=== PATIENT | female | born 1995 | race African-American/Black ===

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

== ENCOUNTER 2017-01-26 15:00 | Emergency (ER) | payer OTHER ==
[~2017-01-26] VITALS: Wt 56.7 kg
[2017-01-26] MEDS ORDERED: HYDROXYZINE HCL25 MG PO (15:05)
[2017-01-26] MEDS ORDERED: NAPROSYN500 MG PO (15:16)
[2017-01-26] MEDS ORDERED: PREDNISONE10 MG PO (15:22)
== END 2017-01-26 16:15 | disposition home or self-care (01) ==
LOC: ED 15:00
DX: M79.671 Pain in right foot (principal); R03.0 Elevated blood-pressure reading, without diagnosis of hypertension; F17.210 Nicotine dependence, cigarettes, uncomplicated

== ENCOUNTER 2017-03-31 15:30 | Emergency (ER) | payer OTHER ==
[~2017-03-31] VITALS: Ht 152.4 cm; Wt 61.2 kg
[~2017-03-31 15:30] MED LIST changes: +HYDROXYZINE HCL25 MG PO; +NAPROSYN500 MG PO; +PREDNISONE10 MG PO
[2017-03-31] MEDS ORDERED: CEPHALEXIN500 M1 PO (16:03)
[2017-03-31] MEDS ORDERED: NAPROSYN500 MG PO (16:03)
== END 2017-03-31 16:07 | disposition home or self-care (01) ==
LOC: ED 15:30
DX: L02.31 Cutaneous abscess of buttock (principal); F17.210 Nicotine dependence, cigarettes, uncomplicated; Z79.899 Other long term (current) drug therapy

== ENCOUNTER 2017-06-17 12:40 | Emergency (ER) | payer OTHER ==
[~2017-06-17] VITALS: Ht 152.4 cm; Wt 56.7 kg
[~2017-06-17 12:40] MED LIST changes: +CEPHALEXIN500 M1 PO
[2017-06-17] MEDS ORDERED: PREDNISONE10 MG PO (14:11)
== END 2017-06-17 14:27 | disposition home or self-care (01) ==
LOC: ED 12:40
DX: L25.5 Unspecified contact dermatitis due to plants, except food (principal); F17.210 Nicotine dependence, cigarettes, uncomplicated; J45.909 Unspecified asthma, uncomplicated

== ENCOUNTER 2017-07-19 12:39 | Emergency (ER) | payer OTHER ==
[~2017-07-19] VITALS: Wt 56.7 kg
== END 2017-07-19 14:43 | disposition home or self-care (01) ==
LOC: ED 12:39
DX: R59.0 Localized enlarged lymph nodes (principal); R19.04 Left lower quadrant abdominal swelling, mass and lump; F17.210 Nicotine dependence, cigarettes, uncomplicated; Z79.899 Other long term (current) drug therapy

== ENCOUNTER 2018-04-06 01:28 | Emergency (ER) | payer OTHER ==
[~2018-04-06] VITALS: Ht 152.4 cm; Wt 54.4 kg
[2018-04-06] MEDS ORDERED: TRAMADOL HCL50 MG PO (01:40)
[2018-04-06] MEDS ORDERED: BUSPIRONE30 MG PO (01:41)
[2018-04-06 01:50] LABS: BASO % 0.5 % (0.0-1.0); EOS % 0.2 % (1.0-4.0); HEMATOCRIT 43.8 % (37.0-47.0); HEMOGLOBIN 15.2 g/dl (12.0-16.0); LYMPH # 2.5 10*3/uL (1.3-4.4); LYMPH % 28.7 % (27.0-41.0); MEAN CELL VOLUME 86.9 fl (81.0-99.0); MEAN CORPUSCULAR HGB 30.2 pg (27.0-31.0); MEAN CORPUSCULAR HGB CONC 34.7 g/dl (33.0-37.0); MEAN PLATELET VOLUME 9.2 fl (9.6-12.3); MONO # 0.5 10*3/uL (0.1-1.0); MONO % 5.3 % (3.0-9.0); NEUT # 5.6 10*3/uL (2.3-7.9); NEUT % 65.1 % (47.0-73.0); PLATELET COUNT AUTOMATED 275 10*3/uL (130-400); RED BLOOD COUNT 5.04 10*6/uL (4.10-5.10); WHITE BLOOD COUNT 8.6 10*3/uL (4.8-10.8)
[2018-04-06 02:05] LABS: ALBUMIN 4.1 gm/dl (3.1-4.5); ALKALINE PHOSPHATASE 61 U/L (45-117); BUN 8 mg/dl (7-24); CHLORIDE 109 mmol/L (98-107); CREATININE 0.79 mg/dL (0.55-1.02); POTASSIUM 3.3 mmol/L (3.5-5.1); SGOT/AST 20 IU/L (3-35); SGPT/ALT 21 U/L (12-78); SODIUM 139 mmol/L (136-145)
[2018-04-06 02:07] LABS: ACETAMINOPHEN (TYLENOL) < 2.0 ug/ml (10-30)
[2018-04-06 02:14] LABS: BILIRUBIN NEGATIVE (NEGATIVE); BLOOD 3+ (NEGATIVE); CLARITY CLEAR (CLEAR); COLOR YELLOW (YELLOW); GLUCOSE NEGATIVE (NEGATIVE); KETONE NEGATIVE (NEGATIVE); LEUKO ESTERASE NEGATIVE (NEGATIVE); NITRITE NEGATIVE (NEGATIVE)
[2018-04-06 02:21] LABS: EPITHELIAL CELLS 20-25; FINE GRANULAR CAST 15-20
[2018-04-06 02:22] LABS: URINE AMPHETAMINES < 1000 (1000ng/ml); URINE BARBITURATES < 200 (200ng/ml); URINE BENZODIAZEPINES < 200 (200ng/ml); URINE CANNABINOIDS (THC) > 50 (50ng/ml); URINE COCAINE < 300 (300ng/ml); URINE METHADONE < 300 (300ng/ml); URINE OPIATES < 300 (300ng/ml)
[2018-04-06 02:23] LABS: URINE PHENCYCLIDINE < 25 (25ng/ml)
== END 2018-04-06 08:49 | disposition home or self-care (01) ==
LOC: ED 01:28
PROVIDERS: Emergency Medicine
DX: F32.9 Major depressive disorder, single episode, unspecified (principal); F10.129 Alcohol abuse with intoxication, unspecified; F41.9 Anxiety disorder, unspecified; J45.909 Unspecified asthma, uncomplicated; F17.210 Nicotine dependence, cigarettes, uncomplicated; Z79.899 Other long term (current) drug therapy

== ENCOUNTER 2018-06-02 10:55 | Emergency (ER) | payer OTHER ==
[~2018-06-02] VITALS: Ht 152.4 cm; Wt 59.0 kg
[~2018-06-02 10:55] MED LIST changes: +BUSPIRONE30 MG PO; +TRAMADOL HCL50 MG PO
[2018-06-02] MEDS ORDERED: FLONASE ALLERG9.9 ML NAS (11:39)
[2018-06-02] MEDS ORDERED: PREDNISONE10 MG PO (11:39)
[2018-06-02] MEDS ORDERED: CLARITIN10 MG PO (11:39)
== END 2018-06-02 13:55 | disposition home or self-care (01) ==
LOC: ED 10:55
DX: B34.9 Viral infection, unspecified (principal); R09.81 Nasal congestion; R05 Cough; H92.02 Otalgia, left ear; J45.909 Unspecified asthma, uncomplicated; F17.210 Nicotine dependence, cigarettes, uncomplicated; Z79.899 Other long term (current) drug therapy

== ENCOUNTER 2021-06-03 08:39 | Emergency (ER) | payer OTHER ==
[~2021-06-03] VITALS: Ht 152.4 cm; Wt 59.0 kg
[~2021-06-03 08:39] MED LIST changes: +CLARITIN10 MG PO; +FLONASE ALLERG9.9 ML NAS
== END 2021-06-03 10:28 | disposition home or self-care (01) ==
LOC: ED 08:39
DX: S69.82XA Other specified injuries of left wrist, hand and finger(s), initial encounter (principal); F17.210 Nicotine dependence, cigarettes, uncomplicated; Z79.899 Other long term (current) drug therapy; W22.8XXA Striking against or struck by other objects, initial encounter; Y93.89 Activity, other specified; Y92.69 Other specified industrial and construction area as the place of occurrence of the external cause; Y99.9 Unspecified external cause status